=== PATIENT | female | born 1945 | race Caucasian/White ===

== ENCOUNTER → 2016-08-10 | Outpatient (CLI) | payer MEDICARE, BC ==
[~2016-08-10] MED LIST: ANTIVERT; COLACE100 M1 PO; GABAPENTIN100 MG PO; LISINOPRIL AND1 TAB PO; LISINOPRIL10 MG PO; LISINOPRIL20 MG PO; METHADONE H10 MG/TAB PO; MIRALAX17 GM PO; NAPROXEN500 MG PO; NEURONTIN300 M1 PO; NORCO 325 MG-51 TAB PO; NORCO 325 MG-7.1 TA1 PO; OMEPRAZOLE20 MG PO; OXYCONTIN10 M1 PO; PREDNISONE10 MG PO; XANAX 0.5MG0.5 MG PO; ZOFRAN4 M2 PO; [UNRECOGNIZED DRUG - OTHER] TD
== END ==
LOC: LAB 11:59
DX: D50.0 Iron deficiency anemia secondary to blood loss (chronic) (principal); E03.4 Atrophy of thyroid (acquired); Z90.49 Acquired absence of other specified parts of digestive tract

== ENCOUNTER → 2016-08-22 | Outpatient (CLI) | payer MEDICARE, BC | LOC: LAB 12:44 | DX: K65.1 Peritoneal abscess (principal); Z93.3 Colostomy status ==

== ENCOUNTER → 2016-11-10 | Outpatient (CLI) | payer MEDICARE, BC ==
[2016-04-07 14:25] VITALS: BP 162/60
== END ==
LOC: RAD 09:14
DX: E61.1 Iron deficiency (principal); I10 Essential (primary) hypertension; E03.4 Atrophy of thyroid (acquired)

== ENCOUNTER → 2017-02-02 | Outpatient (CLI) | payer MEDICARE, BC ==
[2016-04-07 14:25] VITALS: BP 162/60
== END ==
LOC: LAB 09:08
DX: E61.1 Iron deficiency (principal)

== ENCOUNTER 2017-07-02 09:04 | Emergency (ER) | payer MEDICARE, BC ==
[~2017-07-02] VITALS: Wt 94.2 kg
[~2017-07-02 09:04] MED LIST changes: +GOOD SENSE OMEP20 MG PO; +METHADONE HYDRO10 MG PO; +SYNTHROID0.05 MG PO; +ZOFRAN ODT8 M1 PO
[2017-07-02 09:38] LABS: EOS # 0.1 (0.04-0.40); EOS % 0.7 % (1.0-5.0); HEMATOCRIT 39.7 % (37.0-47.0); HEMOGLOBIN 12.6 g/dL (12.5-16.0); LYMPH# 1.5 (1.50-4.00); MEAN CELL VOLUME 86 fl (78-100); MEAN CORPUSCULAR HEMOGLOBIN 27 pg (27-31); MEAN CORPUSCULAR HGB CONC 32 g/dL (33-37); MEAN PLATELET VOLUME 10.8 fl (7.4-10.4); MONO # 0.4 (0.20-0.80); NEU # 5.3 (1.40-6.50); PLATELET COUNT 175 K/mm3 (130-400); RED BLOOD COUNT 4.61 M/mm3 (4.10-5.30); RED CELL DISTRIBUTION WIDTH 15.6 % (11.5-14.5); WHITE BLOOD COUNT 7.3 K/mm3 (4.8-10.8)
[2017-07-02 10:21] LABS: ALBUMIN 3.7 g/dL (3.5-5.0); BUN/CREATININE RATIO 15.8 (6.0-26.0); POTASSIUM 4.2 mmol/L (3.6-5.0); TOTAL BILIRUBIN 0.5 mg/dL (0.2-1.3); TOTAL PROTEIN 6.9 g/dL (6.3-8.2)
[2017-07-02 10:56] LABS: URINE APPEARANCE HAZY; URINE BILIRUBIN NEGATIVE (NEGATIVE); URINE BLOOD TRACE (NEGATIVE); URINE COLOR YELLOW; URINE GLUCOSE NEGATIVE (NEGATIVE); URINE KETONE NEGATIVE (NEGATIVE); URINE LEUKOCYTE ESTERASE TRACE (NEGATIVE); URINE NITRATE POSITIVE (NEGATIVE); URINE PROTEIN(semi-quant) NEGATIVE (NEGATIVE); URINE UROBILINOGEN NORMAL (NORMAL)
[2017-07-02] MEDS ORDERED: PHENERGAN 25 TA25 MG PO (11:21)
[2017-07-02 11:27] VITALS: BP 179/61
== END 2017-07-02 11:28 | disposition home or self-care (01) ==
LOC: ED 09:04
PROVIDERS: Nurse Practitioner Primary Care
DX: A08.4 Viral intestinal infection, unspecified (principal); K21.9 Gastro-esophageal reflux disease without esophagitis; I10 Essential (primary) hypertension; K44.9 Diaphragmatic hernia without obstruction or gangrene; Z90.49 Acquired absence of other specified parts of digestive tract
CPT/HCPCS: J2550; J7030; Q9967

== ENCOUNTER → 2017-08-14 | Outpatient (CLI) | payer MEDICARE, BC ==
[~2017-08-14] MED LIST changes: +PHENERGAN 25 TA25 MG PO
[2017-08-14 12:13] LABS: EOS # 0.2 (0.04-0.40); EOS % 3.4 % (1.0-5.0); HEMATOCRIT 39.5 % (37.0-47.0); HEMOGLOBIN 12.1 g/dL (12.5-16.0); LYMPH# 2.6 (1.50-4.00); MEAN CELL VOLUME 89 fl (78-100); MEAN CORPUSCULAR HEMOGLOBIN 27 pg (27-31); MEAN CORPUSCULAR HGB CONC 31 g/dL (33-37); MEAN PLATELET VOLUME 10.2 fl (7.4-10.4); MONO # 0.6 (0.20-0.80); NEU # 3.7 (1.40-6.50); PLATELET COUNT 243 K/mm3 (130-400); RED BLOOD COUNT 4.46 M/mm3 (4.10-5.30); RED CELL DISTRIBUTION WIDTH 15.5 % (11.5-14.5); WHITE BLOOD COUNT 7.2 K/mm3 (4.8-10.8)
[2017-08-14 13:22] LABS: ERYTHROCYTE SEDIMENTATION RATE 30 mm/hr (0-30)
[2017-08-14 13:39] LABS: ALBUMIN 3.7 g/dL (3.5-5.0); BUN/CREATININE RATIO 20.3 (6.0-26.0); CALCIUM 9.4 mg/dL (8.4-10.2); POTASSIUM 4.1 mmol/L (3.6-5.0); TOTAL BILIRUBIN 0.3 mg/dL (0.2-1.3); TOTAL PROTEIN 6.6 g/dL (6.3-8.2)
== END ==
LOC: LAB 11:52
PROVIDERS: Internal Medicine
DX: E03.4 Atrophy of thyroid (acquired) (principal); I10 Essential (primary) hypertension; E61.1 Iron deficiency; M17.0 Bilateral primary osteoarthritis of knee

== ENCOUNTER → 2017-09-18 | Outpatient (CLI) | payer MEDICARE, BC | LOC: RAD 09:36 | DX: M25.552 Pain in left hip (principal); M25.551 Pain in right hip; Z88.8 Allergy status to other drugs, medicaments and biological substances ==

== ENCOUNTER → 2017-11-06 | Outpatient (CLI) | payer MEDICARE, BC ==
[~2017-11-06] VITALS: Ht 167.6 cm; Wt 100.9 kg
[~2017-11-06] MED LIST changes: +FEROSUL325 M1 PO
[2017-11-06 11:03] LABS: EOS # 0.1 (0.04-0.40); EOS % 1.6 % (1.0-5.0); HEMATOCRIT 41.6 % (37.0-47.0); HEMOGLOBIN 13.2 g/dL (12.5-16.0); LYMPH# 2.1 (1.50-4.00); MEAN CELL VOLUME 91 fl (78-100); MEAN CORPUSCULAR HEMOGLOBIN 29 pg (27-31); MEAN CORPUSCULAR HGB CONC 32 g/dL (33-37); MEAN PLATELET VOLUME 9.4 fl (7.4-10.4); MONO # 0.7 (0.20-0.80); NEU # 5.2 (1.40-6.50); PLATELET COUNT 223 K/mm3 (130-400); RED BLOOD COUNT 4.57 M/mm3 (4.10-5.30); RED CELL DISTRIBUTION WIDTH 15.3 % (11.5-14.5); WHITE BLOOD COUNT 8.2 K/mm3 (4.8-10.8)
[2017-11-06 11:22] LABS: ALBUMIN 3.8 g/dL (3.5-5.0); BUN/CREATININE RATIO 18.9 (6.0-26.0); CALCIUM 9.3 mg/dL (8.4-10.2); POTASSIUM 4.3 mmol/L (3.6-5.0); TOTAL BILIRUBIN 0.4 mg/dL (0.2-1.3)
[2017-11-06 11:23] LABS: PROTHROMBIN TIME 9.2 SECONDS (9.0-12.0)
[2017-11-06 11:24] VITALS: BP 138/80
[2017-11-06 11:36] LABS: URINE APPEARANCE HAZY; URINE BILIRUBIN NEGATIVE (NEGATIVE); URINE BLOOD TRACE (NEGATIVE); URINE COLOR YELLOW; URINE GLUCOSE NEGATIVE (NEGATIVE); URINE KETONE NEGATIVE (NEGATIVE); URINE NITRATE NEGATIVE (NEGATIVE); URINE PROTEIN(semi-quant) NEGATIVE (NEGATIVE); URINE UROBILINOGEN NORMAL (NORMAL)
[2017-11-06 11:37] LABS: URINE LEUKOCYTE ESTERASE TRACE (NEGATIVE)
== END ==
LOC: AMSURD 10:24
PROVIDERS: Internal Medicine
DX: Z01.818 Encounter for other preprocedural examination (principal); R53.83 Other fatigue; Z51.81 Encounter for therapeutic drug level monitoring

== ENCOUNTER → 2017-11-07 | Outpatient (CLI) | payer MEDICARE, BC ==
[2017-11-06 11:24] VITALS: BP 138/80
[2017-11-07 10:56] LABS: PH-URINE 6.5 (5.0 - 8.0); URINE APPEARANCE HAZY; URINE BILIRUBIN NEGATIVE (NEGATIVE); URINE BLOOD TRACE (NEGATIVE); URINE COLOR YELLOW; URINE GLUCOSE NEGATIVE (NEGATIVE); URINE KETONE NEGATIVE (NEGATIVE); URINE LEUKOCYTE ESTERASE NEGATIVE (NEGATIVE); URINE NITRATE POSITIVE (NEGATIVE); URINE PROTEIN(semi-quant) TRACE mg/dL (NEGATIVE); URINE UROBILINOGEN NORMAL (NORMAL)
== END ==
LOC: LAB 10:23
PROVIDERS: Orthopaedic Surgery
DX: Z01.818 Encounter for other preprocedural examination (principal); M16.0 Bilateral primary osteoarthritis of hip; N30.00 Acute cystitis without hematuria; Z88.8 Allergy status to other drugs, medicaments and biological substances

== ENCOUNTER → 2017-11-17 | Outpatient (CLI) | payer MEDICARE, BC ==
[2017-11-06 11:24] VITALS: BP 138/80
[2017-11-17 12:02] LABS: URINE APPEARANCE CLEAR; URINE BILIRUBIN NEGATIVE (NEGATIVE); URINE BLOOD NEGATIVE (NEGATIVE); URINE COLOR YELLOW; URINE GLUCOSE NEGATIVE (NEGATIVE); URINE KETONE NEGATIVE (NEGATIVE); URINE LEUKOCYTE ESTERASE NEGATIVE (NEGATIVE); URINE MUCUS PRESENT (NOT PRESENT); URINE NITRATE NEGATIVE (NEGATIVE); URINE PROTEIN(semi-quant) NEGATIVE (NEGATIVE); URINE UROBILINOGEN NORMAL (NORMAL)
== END ==
LOC: LAB 11:26
PROVIDERS: Internal Medicine
DX: Z01.818 Encounter for other preprocedural examination (principal); M16.0 Bilateral primary osteoarthritis of hip; N30.00 Acute cystitis without hematuria; Z88.8 Allergy status to other drugs, medicaments and biological substances

== ENCOUNTER 2018-02-01 07:53 | Emergency (ER) | payer MEDICARE, BC ==
[~2018-02-01] VITALS: Ht 167.6 cm; Wt 103.2 kg
[2018-02-01] MEDS ORDERED: FOLIC ACID1 MG PO (08:12)
[2018-02-01] MEDS ORDERED: FERROUS SULFAT325 M4 PO (08:12)
[2018-02-01] MEDS ORDERED: VITAMIN C PURE500 M1 PO (08:13)
[2018-02-01] MEDS ORDERED: OXYCODONE PO (08:14)
[2018-02-01 09:15] LABS: EOS # 0.2 (0.04-0.40); EOS % 1.8 % (1.0-5.0); HEMATOCRIT 38.9 % (37.0-47.0); HEMOGLOBIN 12.2 g/dL (12.5-16.0); LYMPH# 1.5 (1.50-4.00); MEAN CELL VOLUME 88 fl (78-100); MEAN CORPUSCULAR HEMOGLOBIN 28 pg (27-31); MEAN CORPUSCULAR HGB CONC 31 g/dL (33-37); MEAN PLATELET VOLUME 10.8 fl (7.4-10.4); MONO # 0.5 (0.20-0.80); NEU # 6.5 (1.40-6.50); PLATELET COUNT 230 K/mm3 (130-400); RED BLOOD COUNT 4.44 M/mm3 (4.10-5.30); RED CELL DISTRIBUTION WIDTH 13.8 % (11.5-14.5); WHITE BLOOD COUNT 8.7 K/mm3 (4.8-10.8)
[2018-02-01 09:27] LABS: ALBUMIN 3.8 g/dL (3.5-5.0); BUN/CREATININE RATIO 18.4 (6.0-26.0); CALCIUM 9.2 mg/dL (8.4-10.2); POTASSIUM 4.1 mmol/L (3.6-5.0); TOTAL BILIRUBIN 0.3 mg/dL (0.2-1.3); TOTAL PROTEIN 7.3 g/dL (6.3-8.2)
[2018-02-01 10:55] LABS: URINE APPEARANCE HAZY; URINE BILIRUBIN NEGATIVE (NEGATIVE); URINE BLOOD NEGATIVE (NEGATIVE); URINE COLOR YELLOW; URINE GLUCOSE NEGATIVE (NEGATIVE); URINE KETONE NEGATIVE (NEGATIVE); URINE LEUKOCYTE ESTERASE 2+ (NEGATIVE); URINE NITRATE POSITIVE (NEGATIVE); URINE PROTEIN(semi-quant) NEGATIVE (NEGATIVE); URINE UROBILINOGEN NORMAL (NORMAL); URINE WBC >50 /hpf (0-3)
[2018-02-01] MEDS ORDERED: PHENERGAN 25 TA25 MG PO (13:26)
[2018-02-01] MEDS ORDERED: CEFDINIR300 MG PO (13:26)
[2018-02-01 13:34] VITALS: BP 156/70
== END 2018-02-01 13:51 | disposition home or self-care (01) ==
LOC: ED 07:53
PROVIDERS: Physician Assistant
DX: A08.4 Viral intestinal infection, unspecified (principal); N39.0 Urinary tract infection, site not specified; I10 Essential (primary) hypertension; Z79.891 Long term (current) use of opiate analgesic
CPT/HCPCS: C9113; J0696; J2405; J2550; J7120

== ENCOUNTER → 2018-02-14 | Outpatient (CLI) | payer MEDICARE, BC ==
[2018-02-01 13:34] VITALS: BP 156/70
[~2018-02-14] MED LIST changes: +CEFDINIR300 MG PO; +FERROUS SULFAT325 M4 PO; +FOLIC ACID1 MG PO; +OXYCODONE PO; +VITAMIN C PURE500 M1 PO
[2018-02-14 10:47] LABS: BASO # 0.1 (0.02-0.10); EOS # 0.2 (0.04-0.40); EOS % 2.2 % (1.0-5.0); HEMATOCRIT 39.7 % (37.0-47.0); HEMOGLOBIN 12.4 g/dL (12.5-16.0); MEAN CELL VOLUME 88 fl (78-100); MEAN CORPUSCULAR HEMOGLOBIN 28 pg (27-31); MEAN CORPUSCULAR HGB CONC 31 g/dL (33-37); MEAN PLATELET VOLUME 10.8 fl (7.4-10.4); MONO # 0.6 (0.20-0.80); NEU # 5.5 (1.40-6.50); PLATELET COUNT 212 K/mm3 (130-400); RED BLOOD COUNT 4.51 M/mm3 (4.10-5.30); WHITE BLOOD COUNT 8.3 K/mm3 (4.8-10.8)
[2018-02-14 10:56] LABS: PROTHROMBIN TIME 9.5 SECONDS (9.0-12.0)
[2018-02-14 11:02] LABS: URINE APPEARANCE CLEAR; URINE BILIRUBIN NEGATIVE (NEGATIVE); URINE BLOOD NEGATIVE (NEGATIVE); URINE COLOR YELLOW; URINE GLUCOSE NEGATIVE (NEGATIVE); URINE KETONE NEGATIVE (NEGATIVE); URINE LEUKOCYTE ESTERASE NEGATIVE (NEGATIVE); URINE MUCUS PRESENT (NOT PRESENT); URINE NITRATE NEGATIVE (NEGATIVE); URINE PROTEIN(semi-quant) NEGATIVE (NEGATIVE); URINE UROBILINOGEN NORMAL (NORMAL)
[2018-02-14 11:13] LABS: BUN/CREATININE RATIO 18.7 (6.0-26.0); POTASSIUM 4.5 mmol/L (3.6-5.0); TOTAL BILIRUBIN 0.2 mg/dL (0.2-1.3); TOTAL PROTEIN 7.1 g/dL (6.3-8.2)
[2018-02-14 11:23] LABS: CALCIUM 9.4 mg/dL (8.4-10.2)
== END ==
LOC: LAB 10:15
PROVIDERS: Internal Medicine
DX: Z01.812 Encounter for preprocedural laboratory examination (principal); E61.1 Iron deficiency; M16.0 Bilateral primary osteoarthritis of hip; N30.00 Acute cystitis without hematuria; E03.4 Atrophy of thyroid (acquired)

== ENCOUNTER → 2018-02-22 | Outpatient (CLI) | payer MEDICARE, BC ==
[2018-02-01 13:34] VITALS: BP 156/70
[2018-02-22 12:04] LABS: URINE APPEARANCE CLEAR; URINE BILIRUBIN NEGATIVE (NEGATIVE); URINE BLOOD NEGATIVE (NEGATIVE); URINE COLOR YELLOW; URINE GLUCOSE NEGATIVE (NEGATIVE); URINE KETONE NEGATIVE (NEGATIVE); URINE LEUKOCYTE ESTERASE TRACE (NEGATIVE); URINE NITRATE NEGATIVE (NEGATIVE); URINE PROTEIN(semi-quant) NEGATIVE (NEGATIVE); URINE UROBILINOGEN NORMAL (NORMAL)
== END ==
LOC: LAB 10:14
PROVIDERS: Internal Medicine
DX: Z01.812 Encounter for preprocedural laboratory examination (principal); E61.1 Iron deficiency; M16.0 Bilateral primary osteoarthritis of hip

== ENCOUNTER 2018-03-06 08:51 | Emergency (ER) | payer MEDICARE, BC ==
[~2018-03-06] VITALS: Ht 165.1 cm; Wt 105.9 kg
[2018-03-06] MEDS ORDERED: FERROUS SULFATE65 MG PO (09:03)
[2018-03-06] MEDS ORDERED: CELEBREX 200MG200 MG PO (09:03)
[2018-03-06] MEDS ORDERED: TOPCARE ASPIRI325 MG PO (09:04)
[2018-03-06] MEDS ORDERED: NORCO 325 MG-7.1 TA1 PO (09:04)
[2018-03-06 09:28] LABS: EOS # 0.3 (0.04-0.40); EOS % 4.2 % (1.0-5.0); HEMATOCRIT 30.7 % (37.0-47.0); HEMOGLOBIN 9.4 g/dL (12.5-16.0); LYMPH# 1.8 (1.50-4.00); MEAN CELL VOLUME 88 fl (78-100); MEAN CORPUSCULAR HEMOGLOBIN 27 pg (27-31); MEAN CORPUSCULAR HGB CONC 31 g/dL (33-37); MEAN PLATELET VOLUME 9.9 fl (7.4-10.4); MONO # 0.6 (0.20-0.80); NEU # 5.3 (1.40-6.50); PLATELET COUNT 286 K/mm3 (130-400); RED CELL DISTRIBUTION WIDTH 15.1 % (11.5-14.5); WHITE BLOOD COUNT 8.1 K/mm3 (4.8-10.8)
[2018-03-06 09:39] LABS: ALBUMIN 3.4 g/dL (3.5-5.0); BUN/CREATININE RATIO 14.7 (6.0-26.0); CALCIUM 9.1 mg/dL (8.4-10.2); POTASSIUM 4.6 mmol/L (3.6-5.0); TOTAL BILIRUBIN 0.4 mg/dL (0.2-1.3); TOTAL PROTEIN 6.3 g/dL (6.3-8.2)
[2018-03-06 10:01] LABS: URINE APPEARANCE CLEAR; URINE BILIRUBIN NEGATIVE (NEGATIVE); URINE BLOOD NEGATIVE (NEGATIVE); URINE COLOR YELLOW; URINE GLUCOSE NEGATIVE (NEGATIVE); URINE KETONE NEGATIVE (NEGATIVE); URINE LEUKOCYTE ESTERASE TRACE (NEGATIVE); URINE NITRATE NEGATIVE (NEGATIVE); URINE PROTEIN(semi-quant) NEGATIVE (NEGATIVE); URINE UROBILINOGEN NORMAL (NORMAL)
[2018-03-06 10:07] LABS: PARTIAL THROMBOPLASTIN TIME 23.6 SECONDS (21.0-32.0)
[2018-03-06 10:33] LABS: D-DIMER 5.33 mg/L FEU (0.15-0.50)
[2018-03-06 12:56] VITALS: BP 173/67
== END 2018-03-06 13:07 | disposition home or self-care (01) ==
LOC: ED 08:51
PROVIDERS: Nurse Practitioner
DX: R10.11 Right upper quadrant pain (principal); I10 Essential (primary) hypertension; K21.9 Gastro-esophageal reflux disease without esophagitis; Z90.49 Acquired absence of other specified parts of digestive tract; Z79.899 Other long term (current) drug therapy; Z79.891 Long term (current) use of opiate analgesic; Z79.82 Long term (current) use of aspirin; G89.29 Other chronic pain; Z96.643 Presence of artificial hip joint, bilateral
CPT/HCPCS: J2405; J3010; Q9967

== ENCOUNTER → 2018-03-12 | Outpatient (CLI) | payer MEDICARE, BC ==
[2018-03-06 12:56] VITALS: BP 173/67
[~2018-03-12] MED LIST changes: +CELEBREX 200MG200 MG PO; +FERROUS SULFATE65 MG PO; +TOPCARE ASPIRI325 MG PO
[2018-03-12 08:40] LABS: EOS # 0.3 (0.04-0.40); EOS % 3.9 % (1.0-5.0); HEMATOCRIT 33.2 % (37.0-47.0); HEMOGLOBIN 10.1 g/dL (12.5-16.0); LYMPH# 1.8 (1.50-4.00); MEAN CELL VOLUME 89 fl (78-100); MEAN CORPUSCULAR HEMOGLOBIN 27 pg (27-31); MEAN CORPUSCULAR HGB CONC 30 g/dL (33-37); MEAN PLATELET VOLUME 10.1 fl (7.4-10.4); MONO # 0.6 (0.20-0.80); NEU # 5.6 (1.40-6.50); PLATELET COUNT 340 K/mm3 (130-400); RED BLOOD COUNT 3.75 M/mm3 (4.10-5.30); RED CELL DISTRIBUTION WIDTH 16.1 % (11.5-14.5); WHITE BLOOD COUNT 8.4 K/mm3 (4.8-10.8)
[2018-03-12 08:57] LABS: ALBUMIN 3.6 g/dL (3.5-5.0); CALCIUM 9.1 mg/dL (8.4-10.2); POTASSIUM 4.3 mmol/L (3.6-5.0); TOTAL BILIRUBIN 0.3 mg/dL (0.2-1.3); TOTAL PROTEIN 6.7 g/dL (6.3-8.2)
== END ==
LOC: LAB 08:15
PROVIDERS: Internal Medicine
DX: E61.1 Iron deficiency (principal); M16.0 Bilateral primary osteoarthritis of hip; R10.13 Epigastric pain

== ENCOUNTER 2018-03-15 06:58 | Emergency (ER) | payer MEDICARE, BC ==
[~2018-03-15] VITALS: Ht 167.6 cm; Wt 107.7 kg
[2018-03-15 08:08] LABS: ALBUMIN 3.8 g/dL (3.5-5.0); CALCIUM 9.3 mg/dL (8.4-10.2); EOS # 0.2 (0.04-0.40); EOS % 3.1 % (1.0-5.0); HEMATOCRIT 34.6 % (37.0-47.0); HEMOGLOBIN 10.7 g/dL (12.5-16.0); LYMPH# 1.6 (1.50-4.00); MEAN CELL VOLUME 88 fl (78-100); MEAN CORPUSCULAR HEMOGLOBIN 27 pg (27-31); MEAN CORPUSCULAR HGB CONC 31 g/dL (33-37); MEAN PLATELET VOLUME 10.4 fl (7.4-10.4); MONO # 0.5 (0.20-0.80); NEU # 4.7 (1.40-6.50); PLATELET COUNT 324 K/mm3 (130-400); POTASSIUM 4.2 mmol/L (3.6-5.0); RED BLOOD COUNT 3.94 M/mm3 (4.10-5.30); TOTAL BILIRUBIN 0.3 mg/dL (0.2-1.3); TOTAL PROTEIN 6.8 g/dL (6.3-8.2); WHITE BLOOD COUNT 7.1 K/mm3 (4.8-10.8)
[2018-03-15 09:21] LABS: URINE COLOR YELLOW
[2018-03-15 09:22] LABS: URINE APPEARANCE CLEAR; URINE BILIRUBIN NEGATIVE (NEGATIVE); URINE BLOOD NEGATIVE (NEGATIVE); URINE GLUCOSE NEGATIVE (NEGATIVE); URINE KETONE NEGATIVE (NEGATIVE); URINE LEUKOCYTE ESTERASE TRACE (NEGATIVE); URINE NITRATE NEGATIVE (NEGATIVE); URINE PROTEIN(semi-quant) NEGATIVE (NEGATIVE); URINE UROBILINOGEN NORMAL (NORMAL)
[2018-03-15] MEDS ORDERED: PHENERGAN50 M2 RC (12:23)
[2018-03-15] MEDS ORDERED: PERCOCET 325 MG1 TA2 PO (12:23)
[2018-03-15 12:43] VITALS: BP 158/65
== END 2018-03-15 12:55 | disposition home or self-care (01) ==
LOC: ED 06:58
PROVIDERS: Nurse Practitioner Family
DX: R10.31 Right lower quadrant pain (principal); R10.13 Epigastric pain; R11.2 Nausea with vomiting, unspecified; Z87.11 Personal history of peptic ulcer disease; Z79.891 Long term (current) use of opiate analgesic; Z79.899 Other long term (current) drug therapy
CPT/HCPCS: J1885; J2270; J2405; J2550; J7030; Q9967

== ENCOUNTER 2018-03-25 10:53 | Emergency (ER) | payer MEDICARE, BC ==
[~2018-03-25] VITALS: Ht 167.6 cm; Wt 105.0 kg
[~2018-03-25 10:53] MED LIST changes: +PERCOCET 325 MG1 TA2 PO; +PHENERGAN50 M2 RC
[2018-03-25] MEDS ORDERED: EPIPEN 2-PAK1 MG/ML SQ (14:58)
[2018-03-25 15:16] VITALS: BP 173/55
== END 2018-03-25 15:00 | disposition home or self-care (01) ==
LOC: ED 10:53
DX: T78.3XXA Angioneurotic edema, initial encounter (principal); Z79.891 Long term (current) use of opiate analgesic; Z79.899 Other long term (current) drug therapy
CPT/HCPCS: J0171; J2930

== ENCOUNTER → 2018-04-16 | Outpatient (CLI) | payer MEDICARE, BC ==
[2018-03-25 15:16] VITALS: BP 173/55
[~2018-04-16] MED LIST changes: +EPIPEN 2-PAK1 MG/ML SQ
[2018-04-16 16:40] LABS: EOS % 0.3 % (1.0-5.0); HEMATOCRIT 40.9 % (37.0-47.0); HEMOGLOBIN 13.2 g/dL (12.5-16.0); MEAN CELL VOLUME 85 fl (78-100); MEAN CORPUSCULAR HEMOGLOBIN 28 pg (27-31); MEAN CORPUSCULAR HGB CONC 32 g/dL (33-37); MEAN PLATELET VOLUME 9.7 fl (7.4-10.4); MONO # 0.6 (0.20-0.80); PLATELET COUNT 258 K/mm3 (130-400); RED BLOOD COUNT 4.79 M/mm3 (4.10-5.30); RED CELL DISTRIBUTION WIDTH 16.9 % (11.5-14.5); WHITE BLOOD COUNT 12.9 K/mm3 (4.8-10.8)
[2018-04-16 16:58] LABS: ALBUMIN 3.9 g/dL (3.5-5.0); CALCIUM 9.4 mg/dL (8.4-10.2); POTASSIUM 4.6 mmol/L (3.6-5.0); TOTAL BILIRUBIN 0.4 mg/dL (0.2-1.3); TOTAL PROTEIN 6.8 g/dL (6.3-8.2)
[2018-04-16 17:10] LABS: NEU # 10.2 (1.40-6.50)
== END ==
LOC: LAB 15:58
PROVIDERS: Internal Medicine
DX: I10 Essential (primary) hypertension (principal); E61.1 Iron deficiency; L50.9 Urticaria, unspecified

== ENCOUNTER 2018-05-20 10:38 | Emergency (ER) | payer MEDICARE, BC ==
[~2018-05-20] VITALS: Ht 167.6 cm; Wt 104.5 kg
[2018-05-20] MEDS ORDERED: CELECOXIB200 M1 PO (11:01)
[2018-05-20 11:18] LABS: EOS % 0.3 % (1.0-5.0); HEMATOCRIT 38.1 % (37.0-47.0); HEMOGLOBIN 12.1 g/dL (12.5-16.0); LYMPH# 1.4 (1.50-4.00); MEAN CELL VOLUME 84 fl (78-100); MEAN CORPUSCULAR HEMOGLOBIN 27 pg (27-31); MEAN CORPUSCULAR HGB CONC 32 g/dL (33-37); MEAN PLATELET VOLUME 10.5 fl (7.4-10.4); MONO # 0.5 (0.20-0.80); NEU # 5.7 (1.40-6.50); PLATELET COUNT 260 K/mm3 (130-400); RED BLOOD COUNT 4.52 M/mm3 (4.10-5.30); RED CELL DISTRIBUTION WIDTH 15.6 % (11.5-14.5); WHITE BLOOD COUNT 7.6 K/mm3 (4.8-10.8)
[2018-05-20 11:35] LABS: ALBUMIN 4.1 g/dL (3.5-5.0); CALCIUM 9.7 mg/dL (8.4-10.2); TOTAL BILIRUBIN 0.7 mg/dL (0.2-1.3); TOTAL PROTEIN 7.1 g/dL (6.3-8.2)
[2018-05-20 13:09] VITALS: BP 177/61
== END 2018-05-20 13:10 | disposition home or self-care (01) ==
LOC: ED 10:38
PROVIDERS: Nurse Practitioner Primary Care
DX: R11.2 Nausea with vomiting, unspecified (principal); R10.9 Unspecified abdominal pain; I10 Essential (primary) hypertension; K21.9 Gastro-esophageal reflux disease without esophagitis; G89.29 Other chronic pain; M54.5 Low back pain; Z79.891 Long term (current) use of opiate analgesic; Z79.899 Other long term (current) drug therapy; Z90.49 Acquired absence of other specified parts of digestive tract
CPT/HCPCS: J2270; J2550; J7030

== ENCOUNTER → 2018-07-12 | Outpatient (CLI) | payer MEDICARE, BC ==
[~2018-07-12] MED LIST changes: +CELECOXIB200 M1 PO
== END ==
LOC: LAB 09:56
DX: I10 Essential (primary) hypertension (principal); D64.9 Anemia, unspecified; R20.2 Paresthesia of skin

== ENCOUNTER → 2018-11-07 | Outpatient (CLI) | payer MEDICARE, BC ==
[2018-11-07 10:29] LABS: HEMATOCRIT 36.2 % (37.0-47.0); HEMOGLOBIN 11.2 g/dL (12.5-16.0); MEAN CELL VOLUME 104 fl (78-100); MEAN CORPUSCULAR HEMOGLOBIN 32 pg (27-31); MEAN CORPUSCULAR HGB CONC 31 g/dL (33-37); MEAN PLATELET VOLUME 10.8 fl (7.4-10.4); PLATELET COUNT 219 K/mm3 (130-400); RED BLOOD COUNT 3.48 M/mm3 (4.10-5.30); RED CELL DISTRIBUTION WIDTH 13.8 % (11.5-14.5); WHITE BLOOD COUNT 7.3 K/mm3 (4.8-10.8)
[2018-11-07 11:04] LABS: ALBUMIN 3.9 g/dL (3.5-5.0); CALCIUM 9.4 mg/dL (8.4-10.2); POTASSIUM 4.4 mmol/L (3.6-5.0); TOTAL BILIRUBIN 0.4 mg/dL (0.2-1.3); TOTAL PROTEIN 7.4 g/dL (6.3-8.2)
[2018-11-07 11:33] LABS: LYMPHOCYTE 11 % (20-51); MONOCYTE 12 % (3-10); NEUTROPHILS 75 % (42-75)
[2018-11-07 11:34] LABS: ERYTHROCYTE SEDIMENTATION RATE 113 mm/hr (0-30)
== END ==
LOC: LAB 09:50 → RAD 09:50
PROVIDERS: Internal Medicine
DX: M48.56XA Collapsed vertebra, not elsewhere classified, lumbar region, initial encounter for fracture (principal); M47.816 Spondylosis without myelopathy or radiculopathy, lumbar region; M43.16 Spondylolisthesis, lumbar region; E61.1 Iron deficiency; E03.4 Atrophy of thyroid (acquired); M85.80 Other specified disorders of bone density and structure, unspecified site; I10 Essential (primary) hypertension

== ENCOUNTER → 2018-11-13 | Outpatient (CLI) | payer MEDICARE, BC | LOC: RAD 13:36 → MAMMO 14:30 | DX: Z13.820 Encounter for screening for osteoporosis (principal); M85.80 Other specified disorders of bone density and structure, unspecified site ==

== ENCOUNTER → 2019-01-16 | Outpatient (CLI) | payer MEDICARE, BC ==
[2019-01-16 09:38] LABS: POTASSIUM 4.7 mmol/L (3.5-5.1)
[2019-01-16 09:39] LABS: CALCIUM 9.4 mg/dL (8.3-10.5)
== END ==
LOC: LAB 09:18
PROVIDERS: Internal Medicine
DX: I10 Essential (primary) hypertension (principal)

== ENCOUNTER 2019-01-24 12:29 | Emergency (ER) | payer MEDICARE, BC ==
[2019-01-24] MEDS ORDERED: NORCO 325 MG-7.1 TA1 PO (12:44)
[2019-01-24] MEDS ORDERED: PRILOSEC OTC20 MG PO (12:45)
[2019-01-24] MEDS ORDERED: VALSARTAN160 M1 PO (12:45)
[2019-01-24] MEDS ORDERED: MS CONTIN 330 MG/TAB PO (12:45)
[2019-01-24] MEDS ORDERED: CELEBREX 200MG200 MG PO (12:46)
[2019-01-24 13:34] LABS: HEMATOCRIT 38.8 % (37.0-47.0); HEMOGLOBIN 12.3 g/dL (12.5-16.0); MEAN CELL VOLUME 82 fl (78-100); MEAN CORPUSCULAR HEMOGLOBIN 26 pg (27-31); MEAN CORPUSCULAR HGB CONC 32 g/dL (33-37); MEAN PLATELET VOLUME 10.6 fl (7.4-10.4); PLATELET COUNT 170 K/mm3 (130-400); RED BLOOD COUNT 4.71 M/mm3 (4.10-5.30); WHITE BLOOD COUNT 11.7 K/mm3 (4.8-10.8)
[2019-01-24 13:43] LABS: ALBUMIN 3.9 g/dL (3.4-4.8); POTASSIUM 4.3 mmol/L (3.5-5.1)
[2019-01-24 13:45] LABS: CALCIUM 9.7 mg/dL (8.3-10.5)
[2019-01-24 13:46] LABS: TOTAL PROTEIN 7.2 g/dL (6.2-8.1)
[2019-01-24 13:48] LABS: TOTAL BILIRUBIN 0.8 mg/dL (0.2-1.2)
[2019-01-24 13:57] LABS: LYMPHOCYTE 7 % (20-51); MONOCYTE 5 % (3-10); NEUTROPHILS 88 % (42-75)
[2019-01-24] MEDS ORDERED: CLEOCIN HCL300 MG PO ×2 (15:41)
[2019-01-24 15:46] VITALS: BP 171/62
== END 2019-01-24 15:47 | disposition home or self-care (01) ==
LOC: ED 12:29
PROVIDERS: Nurse Practitioner
DX: L03.116 Cellulitis of left lower limb (principal); I10 Essential (primary) hypertension; K21.9 Gastro-esophageal reflux disease without esophagitis; Z90.49 Acquired absence of other specified parts of digestive tract; Z90.710 Acquired absence of both cervix and uterus; Z98.890 Other specified postprocedural states; W22.8XXA Striking against or struck by other objects, initial encounter
CPT/HCPCS: J2405; J3010

== ENCOUNTER 2019-01-25 17:22 | Emergency (ER) | payer MEDICARE, BC ==
[~2019-01-25] VITALS: Ht 167.6 cm; Wt 108.2 kg
[~2019-01-25 17:22] MED LIST changes: +CLEOCIN HCL300 MG PO; +MS CONTIN 330 MG/TAB PO; +PRILOSEC OTC20 MG PO; +VALSARTAN160 M1 PO
[2019-01-25 19:01] LABS: HEMATOCRIT 36.4 % (37.0-47.0); HEMOGLOBIN 11.4 g/dL (12.5-16.0); MEAN CELL VOLUME 83 fl (78-100); MEAN CORPUSCULAR HEMOGLOBIN 26 pg (27-31); MEAN CORPUSCULAR HGB CONC 31 g/dL (33-37); MEAN PLATELET VOLUME 11.2 fl (7.4-10.4); PLATELET COUNT 180 K/mm3 (130-400); RED BLOOD COUNT 4.39 M/mm3 (4.10-5.30); RED CELL DISTRIBUTION WIDTH 16.4 % (11.5-14.5); WHITE BLOOD COUNT 12.4 K/mm3 (4.8-10.8)
[2019-01-25 19:31] LABS: BAND 1 % (0-10); NEUTROPHILS 80 % (42-75)
[2019-01-25 19:32] LABS: LYMPHOCYTE 12 % (20-51); MONOCYTE 6 % (3-10)
[2019-01-25 20:40] VITALS: BP 145/47
== END 2019-01-25 20:40 | disposition other institution (70) ==
LOC: ED 17:22
PROVIDERS: Family Medicine
DX: L03.116 Cellulitis of left lower limb (principal); K21.9 Gastro-esophageal reflux disease without esophagitis; I10 Essential (primary) hypertension; Z90.49 Acquired absence of other specified parts of digestive tract; Z96.643 Presence of artificial hip joint, bilateral

== ENCOUNTER 2019-01-25 20:39 | Inpatient (IN) | payer MEDICARE, BC ==
[~2019-01-25] VITALS: Ht 170.2 cm; Wt 106.2 kg
[2019-01-25 23:15] VITALS: BP 129/71
[2019-01-26] VITALS (7 sets, daily range): BP systolic 102–145; BP diastolic 47–73
[2019-01-27 03:20] VITALS: BP 88/54
[2019-01-27 04:30] VITALS: BP 105/62
[2019-01-27 06:16] VITALS: BP 120/76
[2019-01-27 10:57] LABS: EOS # 0.1 (0.04-0.40); EOS % 1.9 % (1.0-5.0); HEMATOCRIT 35.1 % (37.0-47.0); HEMOGLOBIN 10.7 g/dL (12.5-16.0); LYMPH# 1.5 (1.50-4.00); MEAN CELL VOLUME 84 fl (78-100); MEAN CORPUSCULAR HEMOGLOBIN 26 pg (27-31); MEAN CORPUSCULAR HGB CONC 31 g/dL (33-37); MEAN PLATELET VOLUME 10.2 fl (7.4-10.4); MONO # 0.7 (0.20-0.80); NEU # 4.7 (1.40-6.50); PLATELET COUNT 200 K/mm3 (130-400); RED BLOOD COUNT 4.19 M/mm3 (4.10-5.30); RED CELL DISTRIBUTION WIDTH 16.6 % (11.5-14.5)
[2019-01-27 11:05] LABS: POTASSIUM 4.9 mmol/L (3.5-5.1)
[2019-01-27 11:06] LABS: CALCIUM 9.4 mg/dL (8.3-10.5)
[2019-01-27 11:38] VITALS: BP 130/75
== END 2019-01-27 13:50 | disposition home or self-care (01) | DRG 603 ==
LOC: MED/SURG 20:39
PROVIDERS: Nurse Practitioner Primary Care; ADMIT Family Medicine
DX: L03.116 Cellulitis of left lower limb (principal); B95.5 Unspecified streptococcus as the cause of diseases classified elsewhere; I10 Essential (primary) hypertension; K21.9 Gastro-esophageal reflux disease without esophagitis; Z96.643 Presence of artificial hip joint, bilateral
CPT/HCPCS: A4216; J0690; J1650

== ENCOUNTER 2019-02-01 09:35 | Outpatient (RCR) | payer MEDICARE, BC ==
[2019-01-28 13:57] VITALS: BP 149/61
[2019-01-29 09:50] VITALS: BP 165/59
[2019-01-30 09:49] VITALS: BP 195/82
[2019-01-31 09:41] VITALS: BP 187/93
[~2019-02-01] VITALS: Ht 170.2 cm; Wt 106.2 kg
[2019-02-01 09:44] VITALS: BP 174/71
== END 2019-04-28 | disposition still patient (30) ==
LOC: AMSURD
DX: L03.116 Cellulitis of left lower limb (principal); Z79.2 Long term (current) use of antibiotics; Z79.01 Long term (current) use of anticoagulants
CPT/HCPCS: J0696; J1650

== ENCOUNTER → 2019-05-02 | Outpatient (CLI) | payer MEDICARE, BC ==
[2019-05-02 10:03] LABS: EOS # 0.2 (0.04-0.40); EOS % 2.9 % (1.0-5.0); HEMATOCRIT 35.2 % (37.0-47.0); HEMOGLOBIN 11.1 g/dL (12.5-16.0); LYMPH# 1.9 (1.50-4.00); MEAN CELL VOLUME 85 fl (78-100); MEAN CORPUSCULAR HEMOGLOBIN 27 pg (27-31); MEAN CORPUSCULAR HGB CONC 32 g/dL (33-37); MEAN PLATELET VOLUME 10.6 fl (7.4-10.4); MONO # 0.6 (0.20-0.80); NEU # 3.8 (1.40-6.50); PLATELET COUNT 193 K/mm3 (130-400); RED BLOOD COUNT 4.15 M/mm3 (4.10-5.30); RED CELL DISTRIBUTION WIDTH 14.9 % (11.5-14.5); WHITE BLOOD COUNT 6.5 K/mm3 (4.8-10.8)
[2019-05-02 10:25] LABS: ALBUMIN 3.9 g/dL (3.4-4.8)
[2019-05-02 10:26] LABS: POTASSIUM 4.8 mmol/L (3.5-5.1)
[2019-05-02 10:27] LABS: CALCIUM 9.7 mg/dL (8.3-10.5)
[2019-05-02 10:30] LABS: TOTAL BILIRUBIN 0.3 mg/dL (0.2-1.2)
== END ==
LOC: LAB 09:42
PROVIDERS: Internal Medicine
DX: E03.4 Atrophy of thyroid (acquired) (principal); E61.1 Iron deficiency; M85.89 Other specified disorders of bone density and structure, multiple sites; I10 Essential (primary) hypertension

== ENCOUNTER → 2020-05-03 | Outpatient (CLI) | payer MEDICARE, BC ==
[2020-05-03 11:33] LABS: EOS # 0.2 (0.04-0.40); EOS % 2.5 % (1.0-5.0); HEMATOCRIT 38.7 % (37.0-47.0); HEMOGLOBIN 12.3 g/dL (12.5-16.0); LYMPH# 2.1 (1.50-4.00); MEAN CELL VOLUME 90 fl (78-100); MEAN CORPUSCULAR HEMOGLOBIN 29 pg (27-31); MEAN CORPUSCULAR HGB CONC 32 g/dL (33-37); MEAN PLATELET VOLUME 10.2 fl (7.4-10.4); MONO # 0.5 (0.20-0.80); PLATELET COUNT 189 K/mm3 (130-400); RED CELL DISTRIBUTION WIDTH 14.5 % (11.5-14.5); WHITE BLOOD COUNT 6.8 K/mm3 (4.8-10.8)
[2020-05-03 11:46] LABS: CALCIUM 9.5 mg/dL (8.3-10.5)
[2020-05-03 11:50] LABS: TOTAL BILIRUBIN 0.4 mg/dL (0.2-1.2)
== END ==
LOC: LAB 11:16
PROVIDERS: Internal Medicine
DX: E03.4 Atrophy of thyroid (acquired) (principal); E61.1 Iron deficiency; I10 Essential (primary) hypertension; M85.89 Other specified disorders of bone density and structure, multiple sites

== ENCOUNTER → 2020-11-04 | Outpatient (CLI) | payer MEDICARE, BC ==
[2020-11-04 11:26] LABS: EOS # 0.2 (0.04-0.40); EOS % 2.7 % (1.0-5.0); HEMOGLOBIN 12.8 g/dL (12.5-16.0); LYMPH# 2.5 (1.50-4.00); MEAN CELL VOLUME 91 fl (78-100); MEAN CORPUSCULAR HEMOGLOBIN 29 pg (27-31); MEAN CORPUSCULAR HGB CONC 32 g/dL (33-37); MONO # 0.5 (0.20-0.80); NEU # 3.1 (1.40-6.50); PLATELET COUNT 169 K/mm3 (130-400); RED BLOOD COUNT 4.42 M/mm3 (4.10-5.30); RED CELL DISTRIBUTION WIDTH 14.1 % (11.5-14.5); WHITE BLOOD COUNT 6.3 K/mm3 (4.8-10.8)
[2020-11-04 11:34] LABS: ALBUMIN 3.9 g/dL (3.4-4.8); POTASSIUM 4.6 mmol/L (3.5-5.1)
[2020-11-04 11:35] LABS: CALCIUM 9.5 mg/dL (8.3-10.5)
[2020-11-04 11:38] LABS: TOTAL BILIRUBIN 0.3 mg/dL (0.2-1.2)
[2020-11-04 11:43] LABS: MAGNESIUM 2.1 mg/dL (1.60-2.60)
== END ==
LOC: LAB 10:50
PROVIDERS: Internal Medicine
DX: I10 Essential (primary) hypertension (principal); E78.2 Mixed hyperlipidemia; E61.1 Iron deficiency; R73.03 Prediabetes

== ENCOUNTER → 2021-05-30 | Outpatient (CLI) | payer MEDICARE, BC ==
[2021-05-30 10:33] LABS: BASO # 0.05 K/mm3 (0.02-0.10); EOS # 0.27 K/mm3 (0.04-0.40); EOS % 3.8 % (1.0-5.0); HEMATOCRIT 39.2 % (37.0-47.0); HEMOGLOBIN 12.3 g/dL (12.5-16.0); LYMPH# 2.23 K/mm3 (1.50-4.00); MEAN CELL VOLUME 94 fl (78-100); MEAN CORPUSCULAR HEMOGLOBIN 29 pg (27-31); MEAN CORPUSCULAR HGB CONC 31 g/dL (33-37); MONO # 0.49 K/mm3 (0.20-0.80); NEU # 4.04 K/mm3 (1.40-6.50); PLATELET COUNT 164 K/mm3 (130-400); RED BLOOD COUNT 4.19 M/mm3 (4.10-5.30); WHITE BLOOD COUNT 7.1 K/mm3 (4.8-10.8)
[2021-05-30 10:44] LABS: ALBUMIN 3.7 g/dL (3.4-4.8); POTASSIUM 4.6 mmol/L (3.5-5.1)
[2021-05-30 10:45] LABS: CALCIUM 9.9 mg/dL (8.3-10.5)
[2021-05-30 10:48] LABS: TOTAL BILIRUBIN 0.4 mg/dL (0.2-1.2)
[2021-05-30 10:53] LABS: MAGNESIUM 2.05 mg/dL (1.60-2.60)
[2021-05-30 11:46] LABS: URINE APPEARANCE CLEAR; URINE BILIRUBIN NEGATIVE (NEGATIVE); URINE BLOOD NEGATIVE (NEGATIVE); URINE COLOR YELLOW; URINE GLUCOSE NEGATIVE (NEGATIVE); URINE KETONE NEGATIVE (NEGATIVE); URINE LEUKOCYTE ESTERASE NEGATIVE (NEGATIVE); URINE NITRATE NEGATIVE (NEGATIVE); URINE PROTEIN(semi-quant) TRACE mg/dL (NEGATIVE); URINE UROBILINOGEN NORMAL (NORMAL); URINE WBC 0-1 /hpf (0-3)
[2021-05-31 09:14] LABS: CREATININE OTHER SOURCE 69 mg/dL (())
== END ==
LOC: LAB 10:17
PROVIDERS: Internal Medicine
DX: Z12.11 Encounter for screening for malignant neoplasm of colon (principal); I10 Essential (primary) hypertension; K90.9 Intestinal malabsorption, unspecified; R73.03 Prediabetes; E03.4 Atrophy of thyroid (acquired); E78.2 Mixed hyperlipidemia

== ENCOUNTER → 2021-09-07 | Outpatient (CLI) | payer MEDICARE, BC | LOC: MAMMO 09:53 | DX: Z12.31 Encounter for screening mammogram for malignant neoplasm of breast (principal) ==

== ENCOUNTER → 2021-12-26 | Outpatient (CLI) | payer MEDICARE, BC ==
[2021-12-26 11:58] LABS: BASO # 0.02 K/mm3 (0.02-0.10); EOS % 2.3 % (1.0-5.0); HEMATOCRIT 41.6 % (37.0-47.0); HEMOGLOBIN 13.2 g/dL (12.5-16.0); LYMPH# 1.99 K/mm3 (1.50-4.00); MEAN CELL VOLUME 93 fl (78-100); MEAN CORPUSCULAR HEMOGLOBIN 30 pg (27-31); MEAN CORPUSCULAR HGB CONC 32 g/dL (33-37); MEAN PLATELET VOLUME 10.6 fl (7.4-10.4); MONO # 0.31 K/mm3 (0.20-0.80); NEU # 1.89 K/mm3 (1.40-6.50); PLATELET COUNT 154 K/mm3 (130-400); RED BLOOD COUNT 4.47 M/mm3 (4.10-5.30); RED CELL DISTRIBUTION WIDTH 13.5 % (11.5-14.5); WHITE BLOOD COUNT 4.3 K/mm3 (4.8-10.8)
[2021-12-26 12:06] LABS: ALBUMIN 3.9 g/dL (3.4-4.8); POTASSIUM 4.6 mmol/L (3.5-5.1)
[2021-12-26 12:07] LABS: CALCIUM 9.8 mg/dL (8.3-10.5)
[2021-12-26 12:09] LABS: TOTAL PROTEIN 7.2 g/dL (6.2-8.1)
[2021-12-26 12:10] LABS: TOTAL BILIRUBIN 0.3 mg/dL (0.2-1.2)
[2021-12-26 12:16] LABS: MAGNESIUM 2.1 mg/dL (1.60-2.60)
[2021-12-26 13:06] LABS: ERYTHROCYTE SEDIMENTATION RATE 37 mm/hr (0-30)
== END ==
LOC: LAB 11:31
PROVIDERS: Internal Medicine
DX: Z12.31 Encounter for screening mammogram for malignant neoplasm of breast (principal); I10 Essential (primary) hypertension; K90.9 Intestinal malabsorption, unspecified; E03.4 Atrophy of thyroid (acquired); J01.90 Acute sinusitis, unspecified; M48.062 Spinal stenosis, lumbar region with neurogenic claudication; M47.27 Other spondylosis with radiculopathy, lumbosacral region; M85.80 Other specified disorders of bone density and structure, unspecified site; E78.2 Mixed hyperlipidemia; G89.29 Other chronic pain; E66.9 Obesity, unspecified; R73.03 Prediabetes

== ENCOUNTER → 2022-01-12 | Outpatient (CLI) | payer MEDICARE, BC ==
[2022-01-13 01:43] LABS: FOLATE (FOLIC ACID) 11.4 ng/mL (2.0-20.0)
[2022-01-17 11:47] LABS: VITAMIN B1 108 nmol/L (70-180)
== END ==
LOC: LAB 11:11
PROVIDERS: Psychiatry & Neurology Neurology
DX: M79.604 Pain in right leg (principal); M79.605 Pain in left leg

== ENCOUNTER → 2022-08-23 | Outpatient (CLI) | payer MEDICARE, BC | LOC: RAD 11:41 | DX: M17.12 Unilateral primary osteoarthritis, left knee (principal) ==

== ENCOUNTER → 2022-09-12 | Outpatient (CLI) | payer MEDICARE, BC | LOC: MAMMO 10:45 | DX: Z12.31 Encounter for screening mammogram for malignant neoplasm of breast (principal) ==

== ENCOUNTER → 2022-10-19 | Outpatient (CLI) | payer MEDICARE, BC ==
[2022-10-19 08:28] LABS: BASO # 0.03 K/mm3 (0.02-0.10); EOS # 0.24 K/mm3 (0.04-0.40); EOS % 3.3 % (1.0-5.0); HEMATOCRIT 40.2 % (37.0-47.0); HEMOGLOBIN 12.8 g/dL (12.5-16.0); LYMPH# 2.42 K/mm3 (1.50-4.00); MEAN CELL VOLUME 93 fl (78-100); MEAN CORPUSCULAR HEMOGLOBIN 30 pg (27-31); MEAN CORPUSCULAR HGB CONC 32 g/dL (33-37); MEAN PLATELET VOLUME 10.8 fl (7.4-10.4); MONO # 0.45 K/mm3 (0.20-0.80); NEU # 4.02 K/mm3 (1.40-6.50); PLATELET COUNT 172 K/mm3 (130-400); RED BLOOD COUNT 4.33 M/mm3 (4.10-5.30); WHITE BLOOD COUNT 7.2 K/mm3 (4.8-10.8)
[2022-10-19 08:30] LABS: ALBUMIN 3.9 g/dL (3.4-4.8); POTASSIUM 4.9 mmol/L (3.5-5.1)
[2022-10-19 08:33] LABS: TOTAL PROTEIN 6.8 g/dL (6.2-8.1)
[2022-10-19 08:34] LABS: TOTAL BILIRUBIN 0.4 mg/dL (0.2-1.2)
[2022-10-19 08:39] LABS: MAGNESIUM 2.06 mg/dL (1.60-2.60)
[2022-10-19 09:54] LABS: ERYTHROCYTE SEDIMENTATION RATE 25 mm/hr (0-30)
[2022-10-19 10:16] LABS: URINE APPEARANCE CLEAR; URINE BILIRUBIN NEGATIVE (NEGATIVE); URINE BLOOD TRACE (NEGATIVE); URINE COLOR YELLOW; URINE GLUCOSE NEGATIVE (NEGATIVE); URINE KETONE NEGATIVE (NEGATIVE); URINE LEUKOCYTE ESTERASE TRACE (NEGATIVE); URINE NITRATE NEGATIVE (NEGATIVE); URINE PROTEIN(semi-quant) TRACE (NEGATIVE); URINE UROBILINOGEN NORMAL (NORMAL)
[2022-10-19 23:35] LABS: CREATININE OTHER SOURCE 91 mg/dL (63-166)
== END ==
LOC: LAB 07:57
PROVIDERS: Internal Medicine
DX: K90.9 Intestinal malabsorption, unspecified (principal); I10 Essential (primary) hypertension; E03.4 Atrophy of thyroid (acquired); E78.2 Mixed hyperlipidemia; R73.03 Prediabetes; M85.80 Other specified disorders of bone density and structure, unspecified site

== ENCOUNTER → 2023-05-01 | Outpatient (CLI) | payer MEDICARE, BC ==
[2023-05-01 11:09] LABS: BASO # 0.05 K/mm3 (0.02-0.10); EOS # 0.23 K/mm3 (0.04-0.40); EOS % 3.1 % (1.0-5.0); HEMATOCRIT 40.9 % (37.0-47.0); LYMPH# 1.65 K/mm3 (1.50-4.00); MEAN CELL VOLUME 92 fl (78-100); MEAN CORPUSCULAR HEMOGLOBIN 29 pg (27-31); MEAN CORPUSCULAR HGB CONC 32 g/dL (33-37); MONO # 0.42 K/mm3 (0.20-0.80); NEU # 5.05 K/mm3 (1.40-6.50); PLATELET COUNT 152 K/mm3 (130-400); RED BLOOD COUNT 4.44 M/mm3 (4.10-5.30); WHITE BLOOD COUNT 7.4 K/mm3 (4.8-10.8)
[2023-05-01 11:15] LABS: ALBUMIN 3.8 g/dL (3.4-4.8); POTASSIUM 4.8 mmol/L (3.5-5.1)
[2023-05-01 11:16] LABS: CALCIUM 9.8 mg/dL (8.3-10.5)
[2023-05-01 11:19] LABS: TOTAL BILIRUBIN 0.4 mg/dL (0.2-1.2)
[2023-05-01 11:24] LABS: MAGNESIUM 2.13 mg/dL (1.60-2.60)
[2023-05-01 13:02] LABS: ERYTHROCYTE SEDIMENTATION RATE 16 mm/hr (0-30)
[2023-05-01 13:30] LABS: URINE APPEARANCE HAZY; URINE BILIRUBIN NEGATIVE (NEGATIVE); URINE BLOOD NEGATIVE (NEGATIVE); URINE COLOR YELLOW; URINE GLUCOSE NEGATIVE (NEGATIVE); URINE KETONE NEGATIVE (NEGATIVE); URINE NITRATE NEGATIVE (NEGATIVE); URINE PROTEIN(semi-quant) NEGATIVE (NEGATIVE); URINE UROBILINOGEN NORMAL (NORMAL)
[2023-05-01 13:31] LABS: URINE LEUKOCYTE ESTERASE TRACE (NEGATIVE)
[2023-05-01 22:58] LABS: CREATININE OTHER SOURCE 42 mg/dL (63-166)
== END ==
LOC: LAB 10:21
PROVIDERS: Internal Medicine
DX: Z00.00 Encounter for general adult medical examination without abnormal findings (principal); E03.4 Atrophy of thyroid (acquired); I10 Essential (primary) hypertension; G89.29 Other chronic pain; M47.27 Other spondylosis with radiculopathy, lumbosacral region; E78.2 Mixed hyperlipidemia; R73.03 Prediabetes; M85.80 Other specified disorders of bone density and structure, unspecified site; K90.9 Intestinal malabsorption, unspecified; K31.7 Polyp of stomach and duodenum; K63.5 Polyp of colon; E66.9 Obesity, unspecified

== ENCOUNTER → 2023-08-21 | Outpatient (CLI) | payer MEDICARE, BC ==
[2023-08-21 10:42] LABS: HEMATOCRIT 39.7 % (37.0-47.0); HEMOGLOBIN 12.5 g/dL (12.5-16.0); MEAN PLATELET VOLUME 10.5 fl (7.4-10.4); RED BLOOD COUNT 4.25 M/mm3 (4.10-5.30); RED CELL DISTRIBUTION WIDTH 13.7 % (11.5-14.5); WHITE BLOOD COUNT 5.6 K/mm3 (4.8-10.8)
== END ==
LOC: LAB 10:31
PROVIDERS: Nurse Practitioner
DX: G25.81 Restless legs syndrome (principal); G60.9 Hereditary and idiopathic neuropathy, unspecified; M54.50 Low back pain, unspecified; G89.29 Other chronic pain

== ENCOUNTER → 2023-11-02 | Outpatient (CLI) | payer MEDICARE, BC ==
[2023-11-02 12:28] LABS: CALCIUM 10.1 mg/dL (8.3-10.5)
[2023-11-02 12:29] LABS: TOTAL PROTEIN 7.2 g/dL (6.2-8.1)
[2023-11-02 12:31] LABS: TOTAL BILIRUBIN 0.4 mg/dL (0.2-1.2)
== END ==
LOC: LAB 11:33
PROVIDERS: Internal Medicine
DX: I10 Essential (primary) hypertension (principal); R73.03 Prediabetes

== ENCOUNTER 2023-11-14 09:07 | Emergency (ER) | payer MEDICARE, BC ==
[~2023-11-14] VITALS: Ht 165.1 cm; Wt 112.7 kg
[2023-11-14] MEDS ORDERED: NS 1,000 ML IV ONE (09:30)
[2023-11-14] MEDS ORDERED: Ondansetron 4 MG/2 ML VIAL IV ONE (09:30)
[2023-11-14] MEDS ORDERED: NEURONTIN300 MG/CAP PO (09:31)
[2023-11-14] MEDS ORDERED: FERROUS SULFAT325 M4 PO (09:32)
[2023-11-14] MEDS ORDERED: PRAMIPEXOLE0.125 MG PO (09:34)
[2023-11-14 09:42] LABS: EOS # 0.01 K/mm3 (0.04-0.40); EOS % 0.2 % (1.0-5.0); HEMATOCRIT 41.3 % (37.0-47.0); HEMOGLOBIN 13.6 g/dL (12.5-16.0); LYMPH# 0.93 K/mm3 (1.50-4.00); MEAN CELL VOLUME 90 fl (78-100); MEAN CORPUSCULAR HEMOGLOBIN 30 pg (27-31); MEAN CORPUSCULAR HGB CONC 33 g/dL (33-37); MEAN PLATELET VOLUME 10.9 fl (7.4-10.4); MONO # 0.46 K/mm3 (0.20-0.80); NEU # 4.17 K/mm3 (1.40-6.50); PLATELET COUNT 151 K/mm3 (130-400); RED BLOOD COUNT 4.61 M/mm3 (4.10-5.30); RED CELL DISTRIBUTION WIDTH 13.6 % (11.5-14.5); WHITE BLOOD COUNT 5.6 K/mm3 (4.8-10.8)
[2023-11-14 09:48] LABS: ALBUMIN 3.9 g/dL (3.4-4.8)
[2023-11-14 09:50] LABS: CALCIUM 9.5 mg/dL (8.3-10.5)
[2023-11-14 09:51] LABS: TOTAL PROTEIN 6.8 g/dL (6.2-8.1)
[2023-11-14 09:53] LABS: TOTAL BILIRUBIN 0.4 mg/dL (0.2-1.2)
[2023-11-14] MEDS ORDERED: Iohexol 300 - 100 ML VIAL IV ONE (10:19)
[2023-11-14 10:31] LABS: URINE APPEARANCE CLEAR (CLEAR); URINE BILIRUBIN NEGATIVE (NEGATIVE); URINE BLOOD NEGATIVE (NEGATIVE); URINE COLOR YELLOW (YELLOW); URINE GLUCOSE NEGATIVE (NEGATIVE); URINE KETONE NEGATIVE (NEGATIVE); URINE LEUKOCYTE ESTERASE TRACE (NEGATIVE); URINE NITRATE NEGATIVE (NEGATIVE); URINE PROTEIN(semi-quant) NEGATIVE (NEGATIVE)
[2023-11-14] MEDS ORDERED: ZOFRAN ODT4 MG PO (11:29)
[2023-11-14 11:53] VITALS: BP 171/76
== END 2023-11-14 12:00 | disposition home or self-care (01) ==
LOC: ED 09:07
PROVIDERS: Family Medicine
DX: K29.70 Gastritis, unspecified, without bleeding (principal); E66.9 Obesity, unspecified; Z90.49 Acquired absence of other specified parts of digestive tract
CPT/HCPCS: J2405; J7030; Q9967

== ENCOUNTER → 2024-05-23 | Outpatient (CLI) | payer MEDICARE, BC ==
[~2024-05-23] MED LIST changes: +NEURONTIN300 MG/CAP PO; +PRAMIPEXOLE0.125 MG PO; +ZOFRAN ODT4 MG PO
[2024-05-23 11:20] LABS: URINE WBC 0 /hpf (0-3)
[2024-05-23 11:32] LABS: BASO # 0.03 K/mm3 (0.02-0.10); EOS # 0.27 K/mm3 (0.04-0.40); EOS % 3.3 % (1.0-5.0); HEMOGLOBIN 13.2 g/dL (12.5-16.0); LYMPH# 2.27 K/mm3 (1.50-4.00); MEAN CELL VOLUME 93 fl (78-100); MEAN CORPUSCULAR HEMOGLOBIN 30 pg (27-31); MEAN CORPUSCULAR HGB CONC 32 g/dL (33-37); MEAN PLATELET VOLUME 11.1 fl (7.4-10.4); MONO # 0.49 K/mm3 (0.20-0.80); NEU # 5.05 K/mm3 (1.40-6.50); PLATELET COUNT 172 K/mm3 (130-400); RED BLOOD COUNT 4.43 M/mm3 (4.10-5.30); RED CELL DISTRIBUTION WIDTH 13.5 % (11.5-14.5); WHITE BLOOD COUNT 8.1 K/mm3 (4.8-10.8)
[2024-05-23 11:38] LABS: ALBUMIN 4.2 g/dL (3.4-4.8)
[2024-05-23 11:39] LABS: CALCIUM 9.8 mg/dL (8.3-10.5)
[2024-05-23 11:41] LABS: TOTAL PROTEIN 7.3 g/dL (6.2-8.1)
[2024-05-23 11:43] LABS: TOTAL BILIRUBIN 0.5 mg/dL (0.2-1.2)
[2024-05-23 11:47] LABS: MAGNESIUM 2.07 mg/dL (1.60-2.60)
[2024-05-23 12:15] LABS: URINE APPEARANCE CLEAR (CLEAR); URINE BILIRUBIN NEGATIVE (NEGATIVE); URINE BLOOD NEGATIVE (NEGATIVE); URINE COLOR YELLOW (YELLOW); URINE GLUCOSE NEGATIVE (NEGATIVE); URINE KETONE NEGATIVE (NEGATIVE); URINE LEUKOCYTE ESTERASE NEGATIVE (NEGATIVE); URINE NITRATE NEGATIVE (NEGATIVE); URINE PROTEIN(semi-quant) NEGATIVE (NEGATIVE)
[2024-05-24 00:17] LABS: CREATININE OTHER SOURCE 46 mg/dL (63-166)
== END ==
LOC: LAB 11:15
PROVIDERS: Internal Medicine
DX: I10 Essential (primary) hypertension (principal); E03.4 Atrophy of thyroid (acquired); K90.9 Intestinal malabsorption, unspecified; E78.2 Mixed hyperlipidemia; R73.03 Prediabetes

== ENCOUNTER → 2024-08-25 | Outpatient (CLI) | payer MEDICARE, BC | LOC: LAB 11:08 | DX: R73.03 Prediabetes (principal) ==

== ENCOUNTER → 2024-09-17 | Outpatient (CLI) | payer MEDICARE, BC | LOC: RAD 12:47 | DX: M17.11 Unilateral primary osteoarthritis, right knee (principal) ==

== ENCOUNTER → 2024-11-04 | Outpatient (CLI) | payer MEDICARE, BC ==
[2024-11-04 10:52] LABS: BASO # 0.02 K/mm3 (0.02-0.10); EOS # 0.09 K/mm3 (0.04-0.40); EOS % 0.9 % (1.0-5.0); HEMATOCRIT 41.3 % (37.0-47.0); HEMOGLOBIN 12.9 g/dL (12.5-16.0); LYMPH# 2.66 K/mm3 (1.50-4.00); MEAN CELL VOLUME 94 fl (78-100); MEAN CORPUSCULAR HEMOGLOBIN 29 pg (27-31); MEAN CORPUSCULAR HGB CONC 31 g/dL (33-37); MEAN PLATELET VOLUME 10.1 fl (7.4-10.4); MONO # 0.68 K/mm3 (0.20-0.80); NEU # 6.48 K/mm3 (1.40-6.50); PLATELET COUNT 164 K/mm3 (130-400); RED BLOOD COUNT 4.41 M/mm3 (4.10-5.30); RED CELL DISTRIBUTION WIDTH 13.9 % (11.5-14.5)
== END ==
LOC: LAB 10:29
PROVIDERS: Internal Medicine
DX: M46.46 Discitis, unspecified, lumbar region (principal)